=== PATIENT | male | born 1960 | race Caucasian/White ===

== ENCOUNTER 2017-03-23 03:21 | Inpatient (IN) | payer MEDICARE, MEDICAID ==
[~2017-03-23] VITALS: Ht 177.8 cm; Wt 92.1 kg
[~2017-03-23 03:21] MED LIST: ASPI-1061 PO; CLOZ100 PO; DIPH50 PO; DIVA500T52 PO; GEMF600T3 PO; HALO5 PO; HALOD50I IM; METF500T4 PO; TRIH5TAB2 PO
[2017-03-23 03:32] LABS: GLUCOSE,POINT OF CARE 134 MG/DL (70-110)
[2017-03-23] MEDS ORDERED: QUET200T29 PO (03:40)
[2017-03-23 04:32] LABS: BASOPHILS % (AUTO) 0.6 % (0.0-2.0); EOSINOPHILS % (AUTO) 0.1 % (1.0-6.0); HEMATOCRIT 40.2 % (41-53); HEMOGLOBIN 13.1 g/dL (13.5-17.5); LYMPHOCYTES # (AUTO) 2.5 K/uL (1.0-4.8); LYMPHOCYTES % (AUTO) 42.7 % (22.0-44.0); MEAN CORPUSCULAR HEMOGLOBIN 30.8 pg (26.0-34.0); MEAN CORPUSCULAR HGB CONC 32.6 G/dL (31.0-37.0); MEAN CORPUSCULAR VOLUME 95 fL (80-100); MONOCYTES # (AUTO) 0.7 K/uL (0.1-1.0); NEUTROPHILS # (AUTO) 2.7 K/uL (1.8-7.7); NEUTROPHILS % (AUTO) 45.6 % (40.0-70.0); PLATELET COUNT (AUTO) 311 K/uL (150-450); RED BLOOD CELL COUNT(AUTO) 4.25 MIL/uL (4.50-5.90); RED CELL DISTRIBUTION WIDTH 14.9 % (11.5-14.5)
[2017-03-23 04:42] LABS: ANION GAP 11 mmol/L (8-16); CALCIUM, TOTAL 8.8 mg/dL (8.8-10.5); CARBON DIOXIDE 26 mmol/L (22-29); CHLORIDE 104 mmol/L (98-107); CREATININE 0.71 mg/dL (0.60-1.30); GLOMERULAR FILTR. RATE CALC > 60 mL/min (>60); POTASSIUM 3.9 mmol/L (3.5-5.1); SODIUM SERUM 141 mmol/L (136-145); UREA NITROGEN, BLOOD 13 mg/dL (7-18)
[2017-03-23 04:48] LABS: ALANINE AMINOTRANSFERASE 22 U/L (12-78); ALBUMIN 2.9 g/dL (3.4-5.0); ASPARTATE AMINOTRANSFERASE 9 U/L (15-37); BILIRUBIN,TOTAL 0.1 mg/dL (0.1-1.0)
[2017-03-23] MEDS ORDERED: HALOPERIDOL 5 MG TABLET PO PRN (05:30)
[2017-03-23] MEDS ORDERED: LORazepam 2 MG TABLET PO PRN (05:30)
[2017-03-23] MEDS ORDERED: ZOLPIDEM TARTRATE 10 MG TABLET PO PRN (05:30)
[2017-03-23 06:43] LABS: APPEARANCE,URINE CLEAR (CLEAR); GLUCOSE, URINE (UA) NEGATIVE (NEGATIVE); KETONES,URINE TRACE mg/dL (NEGATIVE); LEUKOCYTE ESTERASE ,URINE NEGATIVE (NEGATIVE); OCCULT BLOOD,URINE NEGATIVE (NEGATIVE); PROTEIN,URINE POS 1+ (NEGATIVE)
[2017-03-23 06:44] LABS: ADD UA MICROSCOPIC YES
[2017-03-23 06:55] LABS: RBC,URINE None Seen /HPF (0-2); RENAL EPITHELIAL CELLS,URINE Few /LPF (None Seen); WBC,URINE 0-2 /HPF (0-5)
[2017-03-23 08:25] VITALS: BP 133/69
[2017-03-23] MEDS: NICOTINE 14 MG/24 HOUR PATCH TD SCH (09:00)
[2017-03-23] MEDS: DIVALPROEX SODIUM 500 MG ER TABLET PO SCH (16:13)
[2017-03-23 16:37] VITALS: BP 127/79
[2017-03-23] MEDS ORDERED: CloZAPine 100 MG TABLET PO SCH (21:00)
[2017-03-23] MEDS ORDERED: IBUPROFEN 400 MG TABLET PO PRN (23:00)
[2017-03-23] MEDS ORDERED: ALBUTEROL SULFATE HFA 90 MCG/PUFF 8 GM INHALER IH PRN (23:00)
[2017-03-23] MEDS ORDERED: ACETAMINOPHEN 325 MG TABLET PO PRN (23:00)
[2017-03-24] MEDS ORDERED: GEMFIBROZIL 600 MG TABLET PO SCH (07:00)
[2017-03-24] MEDS ORDERED: MetFORMIN HCL 500 MG TABLET PO SCH (07:30)
[2017-03-24 08:00] VITALS: BP 107/65
[2017-03-24 08:50] LABS: HEMOGLOBIN A1C 7.4 % (4.5-6.2)
[2017-03-24] MEDS ORDERED: ASPIRIN 81 MG EC TABLET PO SCH (09:00)
[2017-03-24] MEDS: NICOTINE 14 MG/24 HOUR PATCH TD SCH (09:00)
[2017-03-24 09:07] LABS: CHOL/HDL RATIO 9.2 (4.2-7.3); THYROID STIMULATING HORMONE 1.79 uIU/mL (0.36-3.74)
[2017-03-24] MEDS: DIVALPROEX SODIUM 500 MG ER TABLET PO SCH (09:22)
[2017-03-24] MEDS ORDERED: CLOZ100 PO (13:07)
== END 2017-03-24 15:30 | disposition home or self-care (01) | DRG 885 ==
LOC: EMS 03:23 → 3EI 06:08
PROVIDERS: ADMIT Psychiatry & Neurology Psychiatry; ATTEND Psychiatry & Neurology Psychiatry
DX: F25.9 Schizoaffective disorder, unspecified (principal); R45.851 Suicidal ideations; E46 Unspecified protein-calorie malnutrition; F17.210 Nicotine dependence, cigarettes, uncomplicated; I10 Essential (primary) hypertension; J44.9 Chronic obstructive pulmonary disease, unspecified; E11.9 Type 2 diabetes mellitus without complications; E78.5 Hyperlipidemia, unspecified; D64.9 Anemia, unspecified; G40.909 Epilepsy, unspecified, not intractable, without status epilepticus; F31.9 Bipolar disorder, unspecified; Z53.29 Procedure and treatment not carried out because of patient's decision for other reasons; Z88.8 Allergy status to other drugs, medicaments and biological substances; Z68.29 Body mass index [BMI] 29.0-29.9, adult
CPT/HCPCS: 82962; 83036; 84443; 99285; G0480

== ENCOUNTER 2017-04-17 19:34 | Inpatient (IN) | payer MEDICARE, MEDICAID ==
[~2017-04-17] VITALS: Ht 177.8 cm; Wt 93.8 kg
[~2017-04-17 19:34] MED LIST changes: -DIPH50 PO; -HALO5 PO; -HALOD50I IM; -TRIH5TAB2 PO
[2017-04-17 20:17] LABS: GLUCOSE,POINT OF CARE 172 MG/DL (70-110)
[2017-04-17 20:26] LABS: BASOPHILS % (AUTO) 0.3 % (0.0-2.0); EOSINOPHILS % (AUTO) 0.1 % (1.0-6.0); HEMATOCRIT 41.2 % (41-53); HEMOGLOBIN 13.2 g/dL (13.5-17.5); LYMPHOCYTES # (AUTO) 2.4 K/uL (1.0-4.8); LYMPHOCYTES % (AUTO) 33.3 % (22.0-44.0); MEAN CORPUSCULAR HEMOGLOBIN 30.6 pg (26.0-34.0); MEAN CORPUSCULAR HGB CONC 32.1 G/dL (31.0-37.0); MEAN CORPUSCULAR VOLUME 95 fL (80-100); MONOCYTES # (AUTO) 0.8 K/uL (0.1-1.0); MONOCYTES % (AUTO) 10.5 % (2.0-9.0); NEUTROPHILS % (AUTO) 55.8 % (40.0-70.0); PLATELET COUNT (AUTO) 342 K/uL (150-450); RED BLOOD CELL COUNT(AUTO) 4.33 MIL/uL (4.50-5.90); RED CELL DISTRIBUTION WIDTH 14.9 % (11.5-14.5); WHITE BLOOD COUNT (AUTO) 7.3 K/uL (4.5-11.0)
[2017-04-17 20:39] LABS: ANION GAP 11 mmol/L (8-16); CARBON DIOXIDE 26 mmol/L (22-29); CHLORIDE 105 mmol/L (98-107); CREATININE 1.03 mg/dL (0.60-1.30); GLOMERULAR FILTR. RATE CALC > 60 mL/min (>60); POTASSIUM 4.4 mmol/L (3.5-5.1); SODIUM SERUM 142 mmol/L (136-145); UREA NITROGEN, BLOOD 17 mg/dL (7-18)
[2017-04-17 20:43] LABS: ALANINE AMINOTRANSFERASE 27 U/L (12-78); ALBUMIN 3.4 g/dL (3.4-5.0); ASPARTATE AMINOTRANSFERASE 9 U/L (15-37); BILIRUBIN,TOTAL 0.2 mg/dL (0.1-1.0); TOTAL PROTEIN, SERUM 7.7 g/dL (6.4-8.2); VALPROIC ACID 85 mcg/mL (50-100)
[2017-04-17] MEDS ORDERED: LORazepam 2 MG/ML VIAL IM ONE (21:30)
[2017-04-17] MEDS ORDERED: RisperiDONE 1 MG TABLET PO ONE (21:30)
[2017-04-17] MEDS ORDERED: LORazepam 2 MG TABLET PO PRN (21:45)
[2017-04-17] MEDS ORDERED: HALOPERIDOL 5 MG TABLET PO PRN (21:45)
[2017-04-17] MEDS ORDERED: ZOLPIDEM TARTRATE 10 MG TABLET PO PRN (21:45)
[2017-04-18 01:00] VITALS: BP 129/75
[2017-04-18] MEDS ORDERED: PNEUMOCOCCAL VACCINE POLYVALENT 0.5 ML VIAL [PPSV23] IM ONE (01:30)
[2017-04-18 06:02] LABS: GLUCOSE,POINT OF CARE 162 MG/DL (70-110)
[2017-04-18 08:02] LABS: APPEARANCE,URINE CLEAR (CLEAR); GLUCOSE, URINE (UA) NEGATIVE (NEGATIVE); KETONES,URINE NEGATIVE (NEGATIVE); LEUKOCYTE ESTERASE ,URINE NEGATIVE (NEGATIVE); OCCULT BLOOD,URINE NEGATIVE (NEGATIVE); PROTEIN,URINE TRACE (NEGATIVE)
[2017-04-18 08:10] LABS: ADD UA MICROSCOPIC NO
[2017-04-18 08:32] LABS: CHOL/HDL RATIO 8.5 (4.2-7.3)
[2017-04-18 09:18] VITALS: BP 145/73
[2017-04-18] MEDS: ASPIRIN 81 MG EC TABLET PO SCH (10:06)
[2017-04-18] MEDS: GEMFIBROZIL 600 MG TABLET PO SCH (16:32)
[2017-04-18] MEDS: DIVALPROEX SODIUM 500 MG ER TABLET PO SCH (17:06)
[2017-04-18] MEDS: MetFORMIN HCL 500 MG TABLET PO SCH (17:06)
[2017-04-18 17:07] LABS: GLUCOSE,POINT OF CARE 183 MG/DL (70-110)
[2017-04-18 17:51] VITALS: BP 133/82
[2017-04-18] MEDS ORDERED: ALBUTEROL SULFATE HFA 90 MCG/PUFF 8 GM INHALER IH PRN (19:00)
[2017-04-18] MEDS ORDERED: ACETAMINOPHEN 325 MG TABLET PO PRN (19:00)
[2017-04-18] MEDS ORDERED: IBUPROFEN 400 MG TABLET PO PRN (19:00)
[2017-04-18] MEDS ORDERED: CloZAPine 100 MG TABLET PO SCH (21:00)
[2017-04-18] MEDS ORDERED: SIMVASTATIN 10 MG TABLET PO SCH (21:00)
[2017-04-19 00:09] VITALS: BP 146/78
[2017-04-19] MEDS: GEMFIBROZIL 600 MG TABLET PO SCH ×2 (06:06→16:35)
[2017-04-19] MEDS: MetFORMIN HCL 500 MG TABLET PO SCH ×2 (06:06→16:35)
[2017-04-19 06:17] LABS: GLUCOSE,POINT OF CARE 138 MG/DL (70-110)
[2017-04-19 08:31] VITALS: BP 138/76
[2017-04-19] MEDS: DIVALPROEX SODIUM 500 MG ER TABLET PO SCH ×2 (08:38→16:35)
[2017-04-19] MEDS: ASPIRIN 81 MG EC TABLET PO SCH (08:38)
[2017-04-19 11:22] LABS: GLUCOSE,POINT OF CARE 239 MG/DL (70-110)
[2017-04-19 16:00] VITALS: BP 147/84
[2017-04-19] MEDS ORDERED: SIMV-259 PO (16:20)
[2017-04-19 16:42] LABS: GLUCOSE,POINT OF CARE 187 MG/DL (70-110)
== END 2017-04-19 17:20 | disposition home or self-care (01) | DRG 885 ==
LOC: EMS 19:37 → B2S 22:30
PROVIDERS: ADMIT Psychiatry & Neurology Psychiatry; ATTEND Psychiatry & Neurology Psychiatry
DX: F25.9 Schizoaffective disorder, unspecified (principal); G40.909 Epilepsy, unspecified, not intractable, without status epilepticus; I10 Essential (primary) hypertension; I25.10 Atherosclerotic heart disease of native coronary artery without angina pectoris; J44.9 Chronic obstructive pulmonary disease, unspecified; F19.10 Other psychoactive substance abuse, uncomplicated; F32.9 Major depressive disorder, single episode, unspecified; F31.9 Bipolar disorder, unspecified; M19.90 Unspecified osteoarthritis, unspecified site; F17.210 Nicotine dependence, cigarettes, uncomplicated; E11.9 Type 2 diabetes mellitus without complications; Z71.51 Drug abuse counseling and surveillance of drug abuser; Z79.84 Long term (current) use of oral hypoglycemic drugs; Z79.82 Long term (current) use of aspirin; Z79.899 Other long term (current) drug therapy; Z88.8 Allergy status to other drugs, medicaments and biological substances; Z28.21 Immunization not carried out because of patient refusal; Z98.890 Other specified postprocedural states; Z71.6 Tobacco abuse counseling
CPT/HCPCS: 82962; 87081; 90471; 96372; 99285; G0480; J2060

== ENCOUNTER 2017-05-10 23:38 | Emergency (ER) | payer MEDICARE, OTHER ==
[~2017-05-10] VITALS: Ht 172.7 cm; Wt 93.0 kg
[~2017-05-10 23:38] MED LIST changes: +SIMV-259 PO
[2017-05-11 02:16] LABS: BASOPHILS # (AUTO) 0.07 K/uL (0.00-0.20); BASOPHILS % (AUTO) 0.9 % (0.0-2.0); EOSINOPHILS # (AUTO) 0.01 K/uL (0.00-0.70); EOSINOPHILS % (AUTO) 0.18 % (1.0-6.0); HEMATOCRIT 37.6 % (41-53); HEMOGLOBIN 12.1 g/dL (13.5-17.5); LYMPHOCYTES # (AUTO) 2.8 K/uL (1.0-4.8); LYMPHOCYTES % (AUTO) 35.9 % (22.0-44.0); MEAN CORPUSCULAR HEMOGLOBIN 30.9 pg (26.0-34.0); MEAN CORPUSCULAR HGB CONC 32.3 G/dL (31.0-37.0); MEAN CORPUSCULAR VOLUME 96 fL (80-100); MONOCYTES # (AUTO) 0.6 K/uL (0.1-1.0); NEUTROPHILS # (AUTO) 4.4 K/uL (1.8-7.7); PLATELET COUNT (AUTO) 573 K/uL (150-450); RED BLOOD CELL COUNT(AUTO) 3.93 MIL/uL (4.50-5.90); RED CELL DISTRIBUTION WIDTH 15.1 % (11.5-14.5); WHITE BLOOD COUNT (AUTO) 7.9 K/uL (4.5-11.0)
[2017-05-11 02:25] LABS: ANION GAP 13 mmol/L (8-16); CALCIUM, TOTAL 9.4 mg/dL (8.8-10.5); CARBON DIOXIDE 26 mmol/L (22-29); CHLORIDE 101 mmol/L (98-107); CREATININE 1.03 mg/dL (0.60-1.30); GLOMERULAR FILTR. RATE CALC > 60 mL/min (>60); POTASSIUM 4.5 mmol/L (3.5-5.1); SODIUM SERUM 140 mmol/L (136-145); UREA NITROGEN, BLOOD 22 mg/dL (7-18)
[2017-05-11 02:31] LABS: ALANINE AMINOTRANSFERASE 30 U/L (12-78); ALBUMIN 2.9 g/dL (3.4-5.0); ASPARTATE AMINOTRANSFERASE 13 U/L (15-37); BILIRUBIN,TOTAL 0.2 mg/dL (0.1-1.0); TOTAL PROTEIN, SERUM 7.8 g/dL (6.4-8.2)
[2017-05-11 05:14] VITALS: BP 131/82
== END 2017-05-11 05:16 | disposition home or self-care (01) ==
LOC: EMS 23:40
DX: F41.9 Anxiety disorder, unspecified (principal); F31.9 Bipolar disorder, unspecified; E11.65 Type 2 diabetes mellitus with hyperglycemia; R07.89 Other chest pain; E44.0 Moderate protein-calorie malnutrition; E78.00 Pure hypercholesterolemia, unspecified; I10 Essential (primary) hypertension; F17.210 Nicotine dependence, cigarettes, uncomplicated; F20.9 Schizophrenia, unspecified; Z79.82 Long term (current) use of aspirin; Z88.8 Allergy status to other drugs, medicaments and biological substances
CPT/HCPCS: 36415; 80053; 80164; 84484; 85025; 93005; 99285; 99406; G0480

== ENCOUNTER 2017-10-08 14:10 | Emergency (ER) | payer MEDICARE, OTHER ==
[~2017-10-08] VITALS: Ht 180.3 cm; Wt 90.4 kg
[~2017-10-08 14:10] MED LIST changes: -ASPI-1061 PO; +ASPI81TA33 PO; +LACT30L PO; -SIMV-259 PO
[2017-10-08 14:18] VITALS: BP 135/99
[2017-10-08 14:23] LABS: GLUCOSE,POINT OF CARE 152 MG/DL (70-110)
== END 2017-10-08 15:31 | disposition home or self-care (01) ==
LOC: EMS 14:11
DX: F32.9 Major depressive disorder, single episode, unspecified (principal); F20.9 Schizophrenia, unspecified; F31.9 Bipolar disorder, unspecified; E11.9 Type 2 diabetes mellitus without complications; E78.00 Pure hypercholesterolemia, unspecified; I10 Essential (primary) hypertension; F17.210 Nicotine dependence, cigarettes, uncomplicated; Z88.8 Allergy status to other drugs, medicaments and biological substances
CPT/HCPCS: 82962; 99284

== ENCOUNTER 2018-06-21 16:44 | Inpatient (IN) | payer MEDICARE, MEDICAID ==
[~2018-06-21] VITALS: Ht 177.8 cm; Wt 92.7 kg
[~2018-06-21 16:44] MED LIST changes: -ASPI81TA33 PO; +ASPI81TA87 PO; -METF500T4 PO; +METF500T6 PO
[2018-06-21] MEDS ORDERED: QUET25TA PO (17:23)
[2018-06-21] MEDS ORDERED: HALO1 PO (17:23)
[2018-06-21] MEDS ORDERED: TRIH2TAB3 PO (17:23)
[2018-06-21 17:59] LABS: GLUCOSE,POINT OF CARE 148 MG/DL (70-110)
[2018-06-21 18:29] LABS: BASOPHILS % (AUTO) 0.9 % (0.0-2.0); EOSINOPHILS % (AUTO) 0.2 % (1.0-6.0); HEMATOCRIT 40.4 % (41-53); HEMOGLOBIN 13.9 g/dL (13.5-17.5); LYMPHOCYTES # (AUTO) 2.3 K/uL (1.0-4.8); LYMPHOCYTES % (AUTO) 37.3 % (22.0-44.0); MEAN CORPUSCULAR HEMOGLOBIN 32.3 pg (26.0-34.0); MEAN CORPUSCULAR HGB CONC 34.3 G/dL (31.0-37.0); MEAN CORPUSCULAR VOLUME 94 fL (80-100); MONOCYTES # (AUTO) 0.5 K/uL (0.1-1.0); MONOCYTES % (AUTO) 7.8 % (2.0-9.0); NEUTROPHILS # (AUTO) 3.4 K/uL (1.8-7.7); NEUTROPHILS % (AUTO) 53.8 % (40.0-70.0); PLATELET COUNT (AUTO) 278 K/uL (150-450); RED BLOOD CELL COUNT(AUTO) 4.29 MIL/uL (4.50-5.90); RED CELL DISTRIBUTION WIDTH 14.9 % (11.5-14.5)
[2018-06-21 18:38] LABS: ANION GAP 8 mmol/L (8-16); CALCIUM, TOTAL 9.1 mg/dL (8.8-10.5); CARBON DIOXIDE 27 mmol/L (22-29); CHLORIDE 104 mmol/L (98-107); CREATININE 0.83 mg/dL (0.60-1.30); GLOMERULAR FILTR. RATE CALC > 60 mL/min (>60); GLUCOSE,RANDOM 135 mg/dL (70-110); POTASSIUM 4.4 mmol/L (3.5-5.1); SODIUM SERUM 139 mmol/L (136-145); UREA NITROGEN, BLOOD 12 mg/dL (7-18)
[2018-06-21 18:45] LABS: ALANINE AMINOTRANSFERASE 44 U/L (12-78); ALBUMIN 3.5 g/dL (3.4-5.0); ALKALINE PHOSPHATASE 70 U/L (46-116); ASPARTATE AMINOTRANSFERASE 17 U/L (15-37); BILIRUBIN,TOTAL 0.3 mg/dL (0.1-1.0); TOTAL PROTEIN, SERUM 7.8 g/dL (6.4-8.2); VALPROIC ACID 93 mcg/mL (50-100)
[2018-06-21 18:51] LABS: AMPHET/METH SCREEN,URINE NEGATIVE (NEGATIVE); BARBITURATE SCREEN, URINE NEGATIVE (NEGATIVE); BENZODIAZEPINES SCREEN,URINE NEGATIVE (NEGATIVE); CANNABINOID SCREEN,URINE NEGATIVE (NEGATIVE); COCAINE SCREEN,URINE NEGATIVE (NEGATIVE); METHADONE SCREEN, URINE NEGATIVE (NEGATIVE); OPIATE SCREEN,URINE NEGATIVE (NEGATIVE)
[2018-06-21 18:52] LABS: PHENCYCLIDINE SCREEN,URINE NEGATIVE (NEGATIVE)
[2018-06-21 20:03] LABS: GLUCOSE,POINT OF CARE 193 MG/DL (70-110)
[2018-06-21] MEDS ORDERED: HALOPERIDOL 5 MG TABLET PO PRN (20:15)
[2018-06-21] MEDS ORDERED: LORazepam 2 MG TABLET PO PRN (20:15)
[2018-06-21] MEDS ORDERED: HALOPERIDOL LACTATE 5 MG/ML VIAL IM ONE (20:30)
[2018-06-21] MEDS ORDERED: LORazepam 2 MG/ML VIAL IM ONE (20:30)
[2018-06-21] MEDS ORDERED: DiphenhydrAMINE HCL 50 MG/ML VIAL IM ONE (20:30)
[2018-06-21] MEDS: DIVALPROEX SODIUM 500 MG ER TABLET PO SCH (21:10)
[2018-06-22 00:08] VITALS: BP_SYST 140; BP_SYST 145; BP_DIAS 79
[2018-06-22] MEDS ORDERED: PNEUMOCOCCAL VACCINE POLYVALENT 0.5 ML VIAL [PPSV23] IM ONE (01:15)
[2018-06-22] MEDS ORDERED: LOPERAMIDE HCL 2 MG CAPSULE PO PRN (05:45)
[2018-06-22] MEDS ORDERED: ONDANSETRON HCL 4 MG TABLET PO PRN (05:45)
[2018-06-22] MEDS ORDERED: MAG HYDROX/AL HYDROX/SIMETH ES 30 ML SUSPENSION UDCUP PO PRN (05:45)
[2018-06-22] MEDS ORDERED: ALBUTEROL SULFATE HFA 90 MCG/PUFF 8 GM INHALER IH PRN (05:45)
[2018-06-22] MEDS ORDERED: DOCUSATE SODIUM 100 MG CAPSULE PO PRN (05:45)
[2018-06-22] MEDS ORDERED: ACETAMINOPHEN 325 MG TABLET PO PRN (05:45)
[2018-06-22] MEDS ORDERED: MAGNESIUM HYDROXIDE SUSPENSION 30 ML UDCUP PO PRN (05:45)
[2018-06-22] MEDS ORDERED: IBUPROFEN 400 MG TABLET PO PRN (05:45)
[2018-06-22] MEDS ORDERED: CloNIDine HCL 0.1 MG TABLET PO PRN (05:45)
[2018-06-22] MEDS ORDERED: PETROLATUM,WHITE 71 GM JELLY TP PRN (05:45)
[2018-06-22 06:35] LABS: GLUCOMETER DEV NAME(LOC) BV2N3; GLUCOSE,POINT OF CARE 168 MG/DL (70-110)
[2018-06-22] MEDS: MetFORMIN HCL 500 MG TABLET PO SCH ×2 (07:29→16:37)
[2018-06-22 08:55] VITALS: BP 131/86
[2018-06-22] MEDS: ASPIRIN 81 MG EC TABLET PO SCH (08:59)
[2018-06-22] MEDS: DIVALPROEX SODIUM 500 MG ER TABLET PO SCH ×2 (08:59→16:38)
[2018-06-22 09:22] LABS: HEMOGLOBIN A1C 8.6 % (4.5-6.2)
[2018-06-22 09:36] LABS: CHOLESTEROL 275 mg/dL (131-200); FREE T4 (FREE THYROXINE) 0.73 ng/dL (0.76-1.46); HDL CHOLESTEROL 25 mg/dL (40-60); THYROID STIMULATING HORMONE 6.84 uIU/mL (0.36-3.74); TRIGLYCERIDES 1051 mg/dL (15-150); VALPROIC ACID 78 mcg/mL (50-100)
[2018-06-22] MEDS: TRIHEXYPHENIDYL HCL 2 MG TABLET PO SCH ×2 (13:11→16:39)
[2018-06-22 16:20] VITALS: BP 116/74
[2018-06-22] MEDS ORDERED: DIVALPROEX SODIUM 500 MG ER TABLET PO SCH (17:00)
[2018-06-22 18:43] LABS: GLUCOMETER DEV NAME(LOC) BV2N3; GLUCOSE,POINT OF CARE 199 MG/DL (70-110)
[2018-06-22] MEDS: ZOLPIDEM TARTRATE 10 MG TABLET PO PRN (20:29)
[2018-06-22] MEDS: SIMVASTATIN 20 MG TABLET PO SCH (20:30)
[2018-06-22] MEDS: CloZAPine 100 MG TABLET PO SCH (20:30)
[2018-06-22 20:54] LABS: GLUCOMETER DEV NAME(LOC) BV2N3; GLUCOSE,POINT OF CARE 178 MG/DL (70-110)
[2018-06-23] MEDS: MetFORMIN HCL 500 MG TABLET PO SCH ×2 (06:10→16:37)
[2018-06-23] MEDS: LEVOTHYROXINE SODIUM 25 MCG TABLET PO SCH (06:10)
[2018-06-23 06:29] LABS: GLUCOMETER DEV NAME(LOC) BV2N3; GLUCOSE,POINT OF CARE 130 MG/DL (70-110)
[2018-06-23 06:53] VITALS: BP 103/62
[2018-06-23 08:10] VITALS: BP 141/85
[2018-06-23] MEDS: AmLODIPine BESYLATE 2.5 MG TABLET PO SCH (10:04)
[2018-06-23] MEDS: DIVALPROEX SODIUM 500 MG ER TABLET PO SCH ×2 (10:04→16:37)
[2018-06-23] MEDS: ASPIRIN 81 MG EC TABLET PO SCH (10:04)
[2018-06-23] MEDS: TRIHEXYPHENIDYL HCL 2 MG TABLET PO SCH ×3 (10:06→16:37)
[2018-06-23 16:18] LABS: GLUCOMETER DEV NAME(LOC) BV2N3; GLUCOSE,POINT OF CARE 203 MG/DL (70-110)
[2018-06-23 18:20] VITALS: BP 139/78
[2018-06-23] MEDS: CloZAPine 100 MG TABLET PO SCH (20:31)
[2018-06-23] MEDS: SIMVASTATIN 20 MG TABLET PO SCH (20:31)
[2018-06-23] MEDS: ZOLPIDEM TARTRATE 10 MG TABLET PO PRN (21:11)
[2018-06-24 06:30] LABS: GLUCOMETER DEV NAME(LOC) BV2N3; GLUCOSE,POINT OF CARE 139 MG/DL (70-110)
[2018-06-24] MEDS: MetFORMIN HCL 500 MG TABLET PO SCH ×2 (06:34→16:09)
[2018-06-24] MEDS: LEVOTHYROXINE SODIUM 25 MCG TABLET PO SCH (06:34)
[2018-06-24 07:10] VITALS: BP 138/74
[2018-06-24 08:00] VITALS: BP 119/64
[2018-06-24] MEDS: ASPIRIN 81 MG EC TABLET PO SCH (09:02)
[2018-06-24] MEDS: TRIHEXYPHENIDYL HCL 2 MG TABLET PO SCH ×3 (09:02→16:09)
[2018-06-24] MEDS: DIVALPROEX SODIUM 500 MG ER TABLET PO SCH ×2 (09:02→16:10)
[2018-06-24] MEDS: AmLODIPine BESYLATE 2.5 MG TABLET PO SCH (09:02)
[2018-06-24 16:19] LABS: GLUCOMETER DEV NAME(LOC) BV2N3; GLUCOSE,POINT OF CARE 232 MG/DL (70-110)
[2018-06-24] MEDS ORDERED: LEVO25TA9 PO (16:24)
[2018-06-24] MEDS ORDERED: TRIH5TAB2 PO (16:24)
[2018-06-24] MEDS ORDERED: AMLO2.5T PO (16:24)
[2018-06-24] MEDS ORDERED: SIMV-260 PO (16:24)
== END 2018-06-24 17:30 | disposition home or self-care (01) | DRG 885 ==
LOC: EMS 16:45 → B2X 20:25
PROVIDERS: ADMIT Psychiatry & Neurology Psychiatry; ATTEND Psychiatry & Neurology Psychiatry
DX: F25.0 Schizoaffective disorder, bipolar type (principal); R45.851 Suicidal ideations; F25.9 Schizoaffective disorder, unspecified; E11.9 Type 2 diabetes mellitus without complications; E78.00 Pure hypercholesterolemia, unspecified; E78.5 Hyperlipidemia, unspecified; F17.200 Nicotine dependence, unspecified, uncomplicated; F31.9 Bipolar disorder, unspecified; F41.9 Anxiety disorder, unspecified; I10 Essential (primary) hypertension; Z79.82 Long term (current) use of aspirin; Z79.84 Long term (current) use of oral hypoglycemic drugs; Z79.899 Other long term (current) drug therapy; Z71.6 Tobacco abuse counseling
CPT/HCPCS: 83036; 84439; 84443; 90471; 99285; 99406; G0480; J1200; J1630; J2060

== ENCOUNTER 2018-07-08 19:01 | Emergency (ER) | payer MEDICARE, OTHER ==
[~2018-07-08] VITALS: Ht 177.8 cm; Wt 93.2 kg
[~2018-07-08 19:01] MED LIST changes: +AMLO2.5T PO; -GEMF600T3 PO; -LACT30L PO; +LEVO25TA9 PO; +SIMV-260 PO; +TRIH5TAB2 PO
[2018-07-08 20:04] VITALS: BP 124/81
[2018-07-08 20:15] LABS: APPEARANCE,URINE CLEAR (CLEAR); GLUCOSE, URINE (UA) 250 mg/dL (NEGATIVE); KETONES,URINE 15 mg/dL (NEGATIVE); LEUKOCYTE ESTERASE ,URINE NEGATIVE (NEGATIVE); NITRATE,URINE NEGATIVE (NEGATIVE); OCCULT BLOOD,URINE NEGATIVE (NEGATIVE); PROTEIN,URINE SEE CONFIRM (NEGATIVE)
[2018-07-08 20:26] LABS: BILIRUBIN,URINE PRELIM. POSITIVE (NEGATIVE); SULFOSALICYLIC ACID,URINE 2+ (Negative)
[2018-07-08 20:27] LABS: BACTERIA,URINE None Seen /HPF (None Seen); RBC,URINE None Seen /HPF (0-2); SQUAMOUS EPITHELIAL CELL,UR Few /LPF (None Seen); WBC,URINE None Seen /HPF (0-5)
[2018-07-08 20:34] LABS: AMPHET/METH SCREEN,URINE NEGATIVE (NEGATIVE); BARBITURATE SCREEN, URINE NEGATIVE (NEGATIVE); BENZODIAZEPINES SCREEN,URINE NEGATIVE (NEGATIVE); CANNABINOID SCREEN,URINE NEGATIVE (NEGATIVE); COCAINE SCREEN,URINE NEGATIVE (NEGATIVE); METHADONE SCREEN, URINE NEGATIVE (NEGATIVE); OPIATE SCREEN,URINE NEGATIVE (NEGATIVE); PHENCYCLIDINE SCREEN,URINE NEGATIVE (NEGATIVE)
[2018-07-08 20:55] LABS: BASOPHILS % (AUTO) 0.7 % (0.0-2.0); EOSINOPHILS % (AUTO) 0.2 % (1.0-6.0); HEMATOCRIT 38.6 % (41-53); HEMOGLOBIN 13.4 g/dL (13.5-17.5); LYMPHOCYTES % (AUTO) 28.9 % (22.0-44.0); MEAN CORPUSCULAR HEMOGLOBIN 32.3 pg (26.0-34.0); MEAN CORPUSCULAR HGB CONC 34.6 G/dL (31.0-37.0); MEAN CORPUSCULAR VOLUME 93 fL (80-100); MONOCYTES # (AUTO) 0.7 K/uL (0.1-1.0); MONOCYTES % (AUTO) 10.1 % (2.0-9.0); NEUTROPHILS # (AUTO) 4.2 K/uL (1.8-7.7); NEUTROPHILS % (AUTO) 60.1 % (40.0-70.0); PLATELET COUNT (AUTO) 249 K/uL (150-450); RED BLOOD CELL COUNT(AUTO) 4.13 MIL/uL (4.50-5.90); RED CELL DISTRIBUTION WIDTH 14.6 % (11.5-14.5)
[2018-07-08 21:05] LABS: ANION GAP 8 mmol/L (8-16); CARBON DIOXIDE 27 mmol/L (22-29); CHLORIDE 102 mmol/L (98-107); CREATININE 0.83 mg/dL (0.60-1.30); GLOMERULAR FILTR. RATE CALC > 60 mL/min (>60); GLUCOSE,RANDOM 174 mg/dL (70-110); POTASSIUM 4.4 mmol/L (3.5-5.1); SODIUM SERUM 137 mmol/L (136-145); UREA NITROGEN, BLOOD 17 mg/dL (7-18)
[2018-07-08 21:21] LABS: ALANINE AMINOTRANSFERASE 40 U/L (12-78); ALBUMIN 3.3 g/dL (3.4-5.0); ALKALINE PHOSPHATASE 71 U/L (46-116); ASPARTATE AMINOTRANSFERASE 20 U/L (15-37); BILIRUBIN,TOTAL 0.3 mg/dL (0.1-1.0); THYROID STIMULATING HORMONE 2.28 uIU/mL (0.36-3.74); TOTAL PROTEIN, SERUM 7.5 g/dL (6.4-8.2); VALPROIC ACID 76 mcg/mL (50-100)
== END 2018-07-08 21:57 | disposition left against medical advice (07) ==
LOC: EMS 19:03
DX: F22 Delusional disorders (principal); F31.9 Bipolar disorder, unspecified; Z53.21 Procedure and treatment not carried out due to patient leaving prior to being seen by health care provider
CPT/HCPCS: 84443

== ENCOUNTER 2018-07-17 21:33 | Emergency (ER) | payer MEDICARE, OTHER ==
[~2018-07-17] VITALS: Ht 180.3 cm; Wt 91.4 kg
[2018-07-17 21:56] LABS: EOSINOPHILS % (AUTO) 0.1 % (1.0-6.0); HEMATOCRIT 39.3 % (41-53); HEMOGLOBIN 13.3 g/dL (13.5-17.5); LYMPHOCYTES # (AUTO) 2.3 K/uL (1.0-4.8); LYMPHOCYTES % (AUTO) 33.4 % (22.0-44.0); MEAN CORPUSCULAR HEMOGLOBIN 31.7 pg (26.0-34.0); MEAN CORPUSCULAR HGB CONC 33.8 G/dL (31.0-37.0); MEAN CORPUSCULAR VOLUME 94 fL (80-100); MONOCYTES # (AUTO) 0.7 K/uL (0.1-1.0); MONOCYTES % (AUTO) 9.7 % (2.0-9.0); NEUTROPHILS # (AUTO) 3.8 K/uL (1.8-7.7); NEUTROPHILS % (AUTO) 55.8 % (40.0-70.0); PLATELET COUNT (AUTO) 273 K/uL (150-450); RED BLOOD CELL COUNT(AUTO) 4.19 MIL/uL (4.50-5.90); RED CELL DISTRIBUTION WIDTH 14.9 % (11.5-14.5)
[2018-07-17 22:07] LABS: ANION GAP 12 mmol/L (8-16); CALCIUM, TOTAL 8.8 mg/dL (8.8-10.5); CARBON DIOXIDE 23 mmol/L (22-29); CHLORIDE 104 mmol/L (98-107); CREATININE 0.95 mg/dL (0.60-1.30); GLOMERULAR FILTR. RATE CALC > 60 mL/min (>60); GLUCOSE,RANDOM 198 mg/dL (70-110); POTASSIUM 4.2 mmol/L (3.5-5.1); SODIUM SERUM 139 mmol/L (136-145); UREA NITROGEN, BLOOD 15 mg/dL (7-18)
[2018-07-17 22:21] LABS: ALANINE AMINOTRANSFERASE 40 U/L (12-78); ALBUMIN 3.2 g/dL (3.4-5.0); ALKALINE PHOSPHATASE 72 U/L (46-116); ASPARTATE AMINOTRANSFERASE 15 U/L (15-37); BILIRUBIN,TOTAL 0.2 mg/dL (0.1-1.0); THYROID STIMULATING HORMONE 2.75 uIU/mL (0.36-3.74); TOTAL PROTEIN, SERUM 7.4 g/dL (6.4-8.2); VALPROIC ACID 76 mcg/mL (50-100)
[2018-07-17 23:42] LABS: APPEARANCE,URINE CLEAR (CLEAR); BILIRUBIN,URINE NEGATIVE (NEGATIVE); GLUCOSE, URINE (UA) NEGATIVE (NEGATIVE); KETONES,URINE TRACE mg/dL (NEGATIVE); LEUKOCYTE ESTERASE ,URINE NEGATIVE (NEGATIVE); NITRATE,URINE NEGATIVE (NEGATIVE); OCCULT BLOOD,URINE NEGATIVE (NEGATIVE); PROTEIN,URINE SEE CONFIRM (NEGATIVE)
[2018-07-17] MEDS ORDERED: LORazepam 1 MG TABLET PO ONE (23:45)
[2018-07-17 23:46] LABS: AMPHET/METH SCREEN,URINE NEGATIVE (NEGATIVE); BARBITURATE SCREEN, URINE NEGATIVE (NEGATIVE); BENZODIAZEPINES SCREEN,URINE NEGATIVE (NEGATIVE); CANNABINOID SCREEN,URINE NEGATIVE (NEGATIVE); COCAINE SCREEN,URINE NEGATIVE (NEGATIVE); METHADONE SCREEN, URINE NEGATIVE (NEGATIVE); OPIATE SCREEN,URINE NEGATIVE (NEGATIVE)
[2018-07-17 23:47] LABS: PHENCYCLIDINE SCREEN,URINE NEGATIVE (NEGATIVE); SULFOSALICYLIC ACID,URINE 1+ (Negative)
[2018-07-17 23:49] LABS: BACTERIA,URINE None Seen /HPF (None Seen); HYALINE CASTS, URINE 0-2 /LPF (None Seen); SQUAMOUS EPITHELIAL CELL,UR Rare /LPF (None Seen); WBC,URINE 0-2 /HPF (0-5)
[2018-07-18 01:55] VITALS: BP 131/79
== END 2018-07-18 02:04 | disposition home or self-care (01) ==
LOC: EMS 21:35
DX: F25.9 Schizoaffective disorder, unspecified (principal); R25.1 Tremor, unspecified; F32.9 Major depressive disorder, single episode, unspecified; F17.210 Nicotine dependence, cigarettes, uncomplicated; Z88.8 Allergy status to other drugs, medicaments and biological substances; Z79.84 Long term (current) use of oral hypoglycemic drugs; Z79.82 Long term (current) use of aspirin; Z79.899 Other long term (current) drug therapy
CPT/HCPCS: 36415; 80053; 80164; 80307; 81001; 82962; 84443; 85025; 99284; G0480

== ENCOUNTER 2019-02-14 01:10 | Inpatient (IN) | payer MEDICARE, MEDICAID ==
[~2019-02-14] VITALS: Ht 177.8 cm; Wt 90.7 kg
[~2019-02-14 01:10] MED LIST changes: -AMLO2.5T PO; +AMLO2.5T4 PO; +METF-960 PO; -METF500T6 PO
[2019-02-14 02:04] LABS: GLUCOSE,POINT OF CARE 210 MG/DL (70-110)
[2019-02-14] MEDS ORDERED: CloZAPine 100 MG TABLET PO ONE (02:30)
[2019-02-14 02:38] LABS: BASOPHILS % (AUTO) 0.9 % (0.0-2.0); EOSINOPHILS % (AUTO) 0.8 % (1.0-6.0); HEMATOCRIT 42.7 % (41-53); HEMOGLOBIN 14.3 g/dL (13.5-17.5); LYMPHOCYTES # (AUTO) 2.6 K/uL (1.0-4.8); MEAN CORPUSCULAR HEMOGLOBIN 30.8 pg (26.0-34.0); MEAN CORPUSCULAR HGB CONC 33.5 G/dL (31.0-37.0); MEAN CORPUSCULAR VOLUME 92 fL (80-100); MONOCYTES # (AUTO) 0.8 K/uL (0.1-1.0); MONOCYTES % (AUTO) 11.5 % (2.0-9.0); NEUTROPHILS # (AUTO) 3.3 K/uL (1.8-7.7); NEUTROPHILS % (AUTO) 48.8 % (40.0-70.0); PLATELET COUNT (AUTO) 213 K/uL (150-450); RED BLOOD CELL COUNT(AUTO) 4.64 MIL/uL (4.50-5.90); RED CELL DISTRIBUTION WIDTH 14.3 % (11.5-14.5)
[2019-02-14 02:46] LABS: ANION GAP 5 mmol/L (8-16); CALCIUM, TOTAL 9.3 mg/dL (8.8-10.5); CARBON DIOXIDE 28 mmol/L (22-29); CHLORIDE 103 mmol/L (98-107); CREATININE 0.79 mg/dL (0.60-1.30); GLOMERULAR FILTR. RATE CALC > 60 mL/min (>60); GLUCOSE,RANDOM 195 mg/dL (70-110); POTASSIUM 4.1 mmol/L (3.5-5.1); SODIUM SERUM 136 mmol/L (136-145); UREA NITROGEN, BLOOD 15 mg/dL (7-18)
[2019-02-14 02:52] LABS: ALANINE AMINOTRANSFERASE 29 U/L (12-78); ALBUMIN 3.2 g/dL (3.4-5.0); ALKALINE PHOSPHATASE 63 U/L (46-116); ASPARTATE AMINOTRANSFERASE 11 U/L (15-37); BILIRUBIN,TOTAL 0.2 mg/dL (0.1-1.0); TOTAL PROTEIN, SERUM 7.1 g/dL (6.4-8.2); VALPROIC ACID 77 mcg/mL (50-100)
[2019-02-14] MEDS ORDERED: LORazepam 2 MG TABLET PO PRN (03:30)
[2019-02-14] MEDS ORDERED: ZOLPIDEM TARTRATE 10 MG TABLET PO PRN (03:30)
[2019-02-14] MEDS ORDERED: HALOPERIDOL 5 MG TABLET PO PRN (03:30)
[2019-02-14 04:52] VITALS: BP 142/92
[2019-02-14 06:07] LABS: HEMOGLOBIN A1C 7.6 % (4.5-6.2)
[2019-02-14 06:17] LABS: FREE T4 (FREE THYROXINE) 0.89 ng/dL (0.76-1.46); THYROID STIMULATING HORMONE 5.19 uIU/mL (0.36-3.74)
[2019-02-14] MEDS ORDERED: PNEUMOCOCCAL VACCINE POLYVALENT 0.5 ML VIAL [PPSV23] IM ONE (07:15)
[2019-02-14] MEDS ORDERED: AmLODIPine BESYLATE 5 MG TABLET PO SCH (09:00)
[2019-02-14 10:00] VITALS: BP 119/62
[2019-02-14] MEDS: ASPIRIN 81 MG EC TABLET PO SCH (10:01)
[2019-02-14] MEDS: TRIHEXYPHENIDYL HCL 5 MG TABLET PO SCH ×3 (10:01→16:50)
[2019-02-14] MEDS ORDERED: GLUCAGON,HUMAN RECOMBINANT 1 MG VIAL IM PRN (11:30)
[2019-02-14] MEDS: INSULIN LISPRO 100 UNITS/ML SQ PRN ×2 (12:43→20:33)
[2019-02-14 13:43] LABS: GLUCOMETER DEV NAME(LOC) BV2S.; GLUCOSE,POINT OF CARE 214 MG/DL (70-110)
[2019-02-14 16:13] VITALS: BP 113/60
[2019-02-14 16:39] LABS: GLUCOMETER DEV NAME(LOC) BV2S.; GLUCOSE,POINT OF CARE 132 MG/DL (70-110)
[2019-02-14] MEDS: DIVALPROEX SODIUM 500 MG ER TABLET PO SCH (16:50)
[2019-02-14] MEDS: CloZAPine 100 MG TABLET PO SCH (16:50)
[2019-02-14] MEDS: MetFORMIN HCL 500 MG TABLET PO SCH (16:50)
[2019-02-14 20:23] LABS: GLUCOMETER DEV NAME(LOC) BV2S.; GLUCOSE,POINT OF CARE 215 MG/DL (70-110)
[2019-02-14] MEDS: SIMVASTATIN 20 MG TABLET PO SCH (20:33)
[2019-02-14] MEDS ORDERED: SIMVASTATIN 20 MG TABLET PO SCH (21:00)
[2019-02-15 00:43] VITALS: BP 125/68
[2019-02-15 06:29] LABS: GLUCOMETER DEV NAME(LOC) BV2S.; GLUCOSE,POINT OF CARE 130 MG/DL (70-110)
[2019-02-15] MEDS: LEVOTHYROXINE SODIUM 25 MCG TABLET PO SCH (06:50)
[2019-02-15] MEDS: MetFORMIN HCL 500 MG TABLET PO SCH ×2 (07:07→16:42)
[2019-02-15 08:45] VITALS: BP 113/65
[2019-02-15] MEDS: TRIHEXYPHENIDYL HCL 5 MG TABLET PO SCH ×3 (08:47→16:42)
[2019-02-15] MEDS: AmLODIPine BESYLATE 2.5 MG TABLET PO SCH (08:47)
[2019-02-15] MEDS: ASPIRIN 81 MG EC TABLET PO SCH (08:48)
[2019-02-15] MEDS: CloZAPine 100 MG TABLET PO SCH ×2 (08:48→16:42)
[2019-02-15] MEDS: DIVALPROEX SODIUM 500 MG ER TABLET PO SCH ×2 (08:48→16:42)
[2019-02-15] MEDS: INSULIN LISPRO 100 UNITS/ML SQ PRN ×3 (10:58→20:51)
[2019-02-15 11:02] LABS: GLUCOMETER DEV NAME(LOC) BV2S.; GLUCOSE,POINT OF CARE 153 MG/DL (70-110)
[2019-02-15 16:30] VITALS: BP 128/84
[2019-02-15 16:33] LABS: GLUCOMETER DEV NAME(LOC) BV2S.; GLUCOSE,POINT OF CARE 211 MG/DL (70-110)
[2019-02-15 20:18] LABS: GLUCOMETER DEV NAME(LOC) BV2S.; GLUCOSE,POINT OF CARE 199 MG/DL (70-110)
[2019-02-15] MEDS: SIMVASTATIN 20 MG TABLET PO SCH (20:40)
[2019-02-16 04:56] VITALS: BP 122/78
[2019-02-16 06:24] LABS: GLUCOMETER DEV NAME(LOC) BV2S.; GLUCOSE,POINT OF CARE 155 MG/DL (70-110)
[2019-02-16] MEDS: LEVOTHYROXINE SODIUM 25 MCG TABLET PO SCH (06:32)
[2019-02-16] MEDS: MetFORMIN HCL 500 MG TABLET PO SCH (06:32)
[2019-02-16] MEDS: INSULIN LISPRO 100 UNITS/ML SQ PRN (06:35)
[2019-02-16] MEDS: CloZAPine 100 MG TABLET PO SCH (08:03)
[2019-02-16] MEDS: ASPIRIN 81 MG EC TABLET PO SCH (08:03)
[2019-02-16] MEDS: TRIHEXYPHENIDYL HCL 5 MG TABLET PO SCH (08:03)
[2019-02-16] MEDS: DIVALPROEX SODIUM 500 MG ER TABLET PO SCH (08:04)
[2019-02-16] MEDS: AmLODIPine BESYLATE 2.5 MG TABLET PO SCH (08:04)
[2019-02-16 08:39] VITALS: BP 140/90
[2019-02-16 09:14] LABS: CHOL/HDL RATIO 7.7 (4.2-7.3); CHOLESTEROL 254 mg/dL (131-200); HDL CHOLESTEROL 33 mg/dL (40-60); TRIGLYCERIDES 575 mg/dL (15-150)
[2019-02-16] MEDS ORDERED: ASPI-1182 PO (09:44)
[2019-02-16 16:14] LABS: GLUCOMETER DEV NAME(LOC) BV2S.; GLUCOSE,POINT OF CARE 234 MG/DL (70-110)
== END 2019-02-16 11:40 | disposition home or self-care (01) | DRG 885 ==
LOC: EMS 01:12 → B2X 03:00
PROVIDERS: ADMIT Psychiatry & Neurology Psychiatry; ATTEND Psychiatry & Neurology Psychiatry
DX: F25.9 Schizoaffective disorder, unspecified (principal); E11.65 Type 2 diabetes mellitus with hyperglycemia; R45.851 Suicidal ideations; Z28.21 Immunization not carried out because of patient refusal; Z88.8 Allergy status to other drugs, medicaments and biological substances; F17.210 Nicotine dependence, cigarettes, uncomplicated; I10 Essential (primary) hypertension; E03.9 Hypothyroidism, unspecified; E78.5 Hyperlipidemia, unspecified; Z79.82 Long term (current) use of aspirin; Z79.899 Other long term (current) drug therapy
CPT/HCPCS: 83036; 84439; 84443; G0480

== ENCOUNTER 2020-01-24 22:29 | Inpatient (IN) | payer MEDICARE, OTHER ==
[~2020-01-24] VITALS: Ht 180.3 cm; Wt 91.4 kg
[~2020-01-24 22:29] MED LIST changes: -AMLO2.5T4 PO; +ASPI-1111 PO; -ASPI81TA87 PO; -LEVO25TA9 PO; +MAGOX PO; +OMEG-135 PO; +PHEN100C23 PO; -SIMV-260 PO; +SIMV-261 PO; -TRIH5TAB2 PO
[2020-01-24 22:47] LABS: GLUCOSE,POINT OF CARE 172 MG/DL (70-110)
[2020-01-24] MEDS ORDERED: LevETIRAcetam 1,000 MG in DEXTROSE 5%-WATER 100 ML IV ONE (23:15)
[2020-01-24 23:16] LABS: BASOPHILS % (AUTO) 0.9 % (0.0-2.0); EOSINOPHILS % (AUTO) 0.8 % (1.0-6.0); HEMATOCRIT 40.9 % (41-53); HEMOGLOBIN 13.7 g/dL (13.5-17.5); LYMPHOCYTES # (AUTO) 2.1 K/uL (1.0-4.8); LYMPHOCYTES % (AUTO) 37.3 % (22.0-44.0); MEAN CORPUSCULAR HEMOGLOBIN 31.5 pg (26.0-34.0); MEAN CORPUSCULAR HGB CONC 33.5 G/dL (31.0-37.0); MEAN CORPUSCULAR VOLUME 94 fL (80-100); MONOCYTES # (AUTO) 0.7 K/uL (0.1-1.0); MONOCYTES % (AUTO) 11.7 % (2.0-9.0); NEUTROPHILS # (AUTO) 2.8 K/uL (1.8-7.7); NEUTROPHILS % (AUTO) 49.3 % (40.0-70.0); PLATELET COUNT (AUTO) 210 K/uL (150-450); RED BLOOD CELL COUNT(AUTO) 4.35 MIL/uL (4.50-5.90); RED CELL DISTRIBUTION WIDTH 14.8 % (11.5-14.5)
[2020-01-24 23:25] LABS: ANION GAP 8 mmol/L (8-16); CALCIUM, TOTAL 8.8 mg/dL (8.8-10.5); CARBON DIOXIDE 28 mmol/L (22-29); CHLORIDE 104 mmol/L (98-107); CREATININE 0.97 mg/dL (0.60-1.30); GLOMERULAR FILTR. RATE CALC > 60 mL/min (>60); GLUCOSE,RANDOM 194 mg/dL (70-110); POTASSIUM 4.1 mmol/L (3.5-5.1); SODIUM SERUM 140 mmol/L (136-145); UREA NITROGEN, BLOOD 16 mg/dL (7-18)
[2020-01-24 23:31] LABS: ALANINE AMINOTRANSFERASE 32 U/L (12-78); ALKALINE PHOSPHATASE 63 U/L (46-116); ASPARTATE AMINOTRANSFERASE 12 U/L (15-37); BILIRUBIN,TOTAL 0.2 mg/dL (0.1-1.0); VALPROIC ACID 89 mcg/mL (50-100)
[2020-01-24 23:33] LABS: AMMONIA 30 umol/L (11-32); TROPONIN I < 0.02 ng/mL (0.00-0.05)
[2020-01-25 00:16] LABS: APPEARANCE,URINE CLEAR (CLEAR); BILIRUBIN,URINE NEGATIVE (NEGATIVE); GLUCOSE, URINE (UA) 500 mg/dL (NEGATIVE); KETONES,URINE TRACE mg/dL (NEGATIVE); LEUKOCYTE ESTERASE ,URINE NEGATIVE (NEGATIVE); NITRATE,URINE NEGATIVE (NEGATIVE); OCCULT BLOOD,URINE NEGATIVE (NEGATIVE); PROTEIN,URINE POS 1+ (NEGATIVE)
[2020-01-25 00:22] LABS: AMPHET/METH SCREEN,URINE NEGATIVE (NEGATIVE); BARBITURATE SCREEN, URINE NEGATIVE (NEGATIVE); BENZODIAZEPINES SCREEN,URINE NEGATIVE (NEGATIVE); CANNABINOID SCREEN,URINE NEGATIVE (NEGATIVE); COCAINE SCREEN,URINE NEGATIVE (NEGATIVE); METHADONE SCREEN, URINE NEGATIVE (NEGATIVE); OPIATE SCREEN,URINE NEGATIVE (NEGATIVE)
[2020-01-25 00:23] LABS: PHENCYCLIDINE SCREEN,URINE NEGATIVE (NEGATIVE)
[2020-01-25 00:26] LABS: BACTERIA,URINE None Seen /HPF (None Seen); RBC,URINE 0-2 /HPF (0-2); SQUAMOUS EPITHELIAL CELL,UR Rare /LPF (None Seen); WBC,URINE None Seen /HPF (0-5)
[2020-01-25] MEDS ORDERED: ONDANSETRON HCL 4 MG/2 ML VIAL IVP PRN ×2 (01:15→11:00)
[2020-01-25] MEDS ORDERED: 0.9% SODIUM CHLORIDE 10 ML SYRINGE IVP PRN (01:15)
[2020-01-25] MEDS ORDERED: ACETAMINOPHEN 325 MG TABLET PO PRN ×2 (01:15→11:00)
[2020-01-25 02:26] VITALS: BP 134/86
[2020-01-25 04:27] VITALS: BP 118/64
[2020-01-25 07:31] VITALS: BP 122/70
[2020-01-25] MEDS ORDERED: HYDROCODONE/ACETAMINOPHEN 5-325 MG TABLET PO PRN (11:00)
[2020-01-25] MEDS ORDERED: BISACODYL 10 MG RECTAL RECTAL SUPPOSITORY PR PRN (11:00)
[2020-01-25] MEDS ORDERED: MAGNESIUM HYDROXIDE SUSPENSION 30 ML UDCUP PO PRN (11:00)
[2020-01-25] MEDS ORDERED: ZOLPIDEM TARTRATE 5 MG TABLET PO PRN (11:00)
[2020-01-25] MEDS ORDERED: MORPHINE SULFATE 2 MG/ML SYRINGE IVP PRN (11:00)
[2020-01-25 11:46] VITALS: BP 136/74
[2020-01-25] MEDS: HEPARIN SODIUM,PORCINE 5,000 UNITS/ML VIAL SQ SCH (15:54)
[2020-01-25 15:55] VITALS: BP 126/70
[2020-01-25] MEDS: LORazepam 1 MG TABLET PO PRN (17:45)
[2020-01-25] MEDS: MetFORMIN HCL 500 MG TABLET PO SCH (17:46)
[2020-01-25 19:25] VITALS: BP 136/75
[2020-01-25] MEDS: DOCUSATE SODIUM 100 MG CAPSULE PO SCH (20:40)
[2020-01-25] MEDS: DIVALPROEX SODIUM 500 MG ER TABLET PO SCH (20:41)
[2020-01-25] MEDS ORDERED: CloZAPine 100 MG TABLET PO SCH (21:00)
[2020-01-26] MEDS: PHENYTOIN SODIUM 100 MG ER CAPSULE PO SCH ×2 (00:03→08:23)
[2020-01-26] MEDS: HEPARIN SODIUM,PORCINE 5,000 UNITS/ML VIAL SQ SCH ×2 (00:04→08:00)
[2020-01-26 00:39] VITALS: BP 116/58
[2020-01-26 04:16] VITALS: BP 110/62
[2020-01-26 06:33] LABS: BASOPHILS % (AUTO) 0.7 % (0.0-2.0); EOSINOPHILS % (AUTO) 0.7 % (1.0-6.0); HEMATOCRIT 41.1 % (41-53); HEMOGLOBIN 13.6 g/dL (13.5-17.5); LYMPHOCYTES # (AUTO) 2.8 K/uL (1.0-4.8); LYMPHOCYTES % (AUTO) 52.3 % (22.0-44.0); MEAN CORPUSCULAR HEMOGLOBIN 31.3 pg (26.0-34.0); MEAN CORPUSCULAR HGB CONC 33.1 G/dL (31.0-37.0); MEAN CORPUSCULAR VOLUME 95 fL (80-100); MONOCYTES # (AUTO) 0.6 K/uL (0.1-1.0); MONOCYTES % (AUTO) 11.8 % (2.0-9.0); NEUTROPHILS # (AUTO) 1.9 K/uL (1.8-7.7); NEUTROPHILS % (AUTO) 34.5 % (40.0-70.0); PLATELET COUNT (AUTO) 210 K/uL (150-450); RED BLOOD CELL COUNT(AUTO) 4.35 MIL/uL (4.50-5.90); RED CELL DISTRIBUTION WIDTH 14.8 % (11.5-14.5)
[2020-01-26 06:50] LABS: ALANINE AMINOTRANSFERASE 27 U/L (12-78); ALBUMIN 2.8 g/dL (3.4-5.0); ALKALINE PHOSPHATASE 57 U/L (46-116); ANION GAP 8 mmol/L (8-16); ASPARTATE AMINOTRANSFERASE 14 U/L (15-37); BILIRUBIN,TOTAL 0.2 mg/dL (0.1-1.0); CALCIUM, TOTAL 8.2 mg/dL (8.8-10.5); CARBON DIOXIDE 28 mmol/L (22-29); CHLORIDE 105 mmol/L (98-107); CREATININE 0.57 mg/dL (0.60-1.30); GLOMERULAR FILTR. RATE CALC > 60 mL/min (>60); GLUCOSE,RANDOM 135 mg/dL (70-110); POTASSIUM 4.3 mmol/L (3.5-5.1); SODIUM SERUM 141 mmol/L (136-145); TOTAL PROTEIN, SERUM 6.5 g/dL (6.4-8.2); UREA NITROGEN, BLOOD 17 mg/dL (7-18)
[2020-01-26 07:25] VITALS: BP 123/79
[2020-01-26] MEDS: DIVALPROEX SODIUM 500 MG ER TABLET PO SCH (08:22)
[2020-01-26] MEDS: MetFORMIN HCL 500 MG TABLET PO SCH (08:22)
[2020-01-26] MEDS: DOCUSATE SODIUM 100 MG CAPSULE PO SCH (08:23)
[2020-01-26] MEDS: LORazepam 1 MG TABLET PO PRN (08:33)
[2020-01-26] MEDS ORDERED: ASPIRIN 81 MG EC TABLET PO SCH (09:00)
[2020-01-26] MEDS ORDERED: PANTOPRAZOLE SODIUM 40 MG DR TABLET PO SCH (09:00)
[2020-01-26] MEDS ORDERED: PHENYTOIN SODIUM 100 MG ER CAPSULE PO SCH (09:00)
[2020-01-26] MEDS ORDERED: CloZAPine 100 MG TABLET PO SCH (10:45)
[2020-01-26] MEDS ORDERED: PHENY100 PO (11:10)
[2020-01-26 11:12] VITALS: BP 136/69
== END 2020-01-26 14:50 | disposition home or self-care (01) | DRG 101 ==
LOC: EMS 22:29 → 5N 01-25 01:28
PROVIDERS: ADMIT Internal Medicine; ATTEND Internal Medicine
DX: G40.909 Epilepsy, unspecified, not intractable, without status epilepticus (principal); G20 Parkinson's disease; R47.1 Dysarthria and anarthria; F20.9 Schizophrenia, unspecified; E11.9 Type 2 diabetes mellitus without complications; I10 Essential (primary) hypertension; F17.210 Nicotine dependence, cigarettes, uncomplicated; Z88.8 Allergy status to other drugs, medicaments and biological substances; Z98.890 Other specified postprocedural states
CPT/HCPCS: 70450; 87081; 93005; 96365; G0480; J0712; J1644; J7060

== ENCOUNTER 2021-11-28 21:32 | Emergency (ER) | payer MEDICARE, OTHER ==
[~2021-11-28] VITALS: Ht 177.8 cm; Wt 90.9 kg
[~2021-11-28 21:32] MED LIST changes: -ASPI-1111 PO; +ASPI-1444 PO; -CLOZ100 PO; +CLOZ100T32 PO; +DIVA-80 PO; -DIVA500T52 PO; -MAGOX PO; +METF-1211 PO; -METF-960 PO; -OMEG-135 PO; -PHEN100C23 PO; +PHENY100 PO; -SIMV-261 PO
[2021-11-28 23:36] LABS: EOSINOPHILS % (AUTO) 0.3 % (1.0-6.0); HEMATOCRIT 38.9 % (41-53); HEMOGLOBIN 13.4 g/dL (13.5-17.5); LYMPHOCYTES % (AUTO) 36.7 % (22.0-44.0); MEAN CORPUSCULAR HEMOGLOBIN 30.9 pg (26.0-34.0); MEAN CORPUSCULAR HGB CONC 34.4 G/dL (31.0-37.0); MEAN CORPUSCULAR VOLUME 90 fL (80-100); MONOCYTES # (AUTO) 0.6 K/uL (0.1-1.0); MONOCYTES % (AUTO) 11.2 % (2.0-9.0); NEUTROPHILS # (AUTO) 2.8 K/uL (1.8-7.7); NEUTROPHILS % (AUTO) 50.8 % (40.0-70.0); PLATELET COUNT (AUTO) 303 K/uL (150-450); RED BLOOD CELL COUNT(AUTO) 4.32 MIL/uL (4.50-5.90); RED CELL DISTRIBUTION WIDTH 13.9 % (11.5-14.5)
[2021-11-28 23:44] LABS: ANION GAP 5 mmol/L (8-16); CALCIUM, TOTAL 9.2 mg/dL (8.8-10.5); CARBON DIOXIDE 30 mmol/L (22-29); CHLORIDE 105 mmol/L (98-107); CREATININE 0.87 mg/dL (0.60-1.30); GLOMERULAR FILTR. RATE CALC > 60 mL/min (>60); GLUCOSE,RANDOM 183 mg/dL (70-110); POTASSIUM 4.2 mmol/L (3.5-5.1); SODIUM SERUM 140 mmol/L (136-145); UREA NITROGEN, BLOOD 16 mg/dL (7-18)
[2021-11-28 23:50] LABS: CREATINE KINASE, TOTAL ONLY 56 U/L (39-308)
[2021-11-29] VITALS: BP 167/95
[2021-11-29 00:23] LABS: COVID AG,FIA SOURCE NASOPHARYNGEAL
== END 2021-11-29 02:07 | disposition home or self-care (01) ==
LOC: EMS 21:33
DX: F20.9 Schizophrenia, unspecified (principal); E11.9 Type 2 diabetes mellitus without complications; I10 Essential (primary) hypertension; Z20.822 Contact with and (suspected) exposure to COVID-19; Z79.84 Long term (current) use of oral hypoglycemic drugs
CPT/HCPCS: 36415; 71045; 80048; 82550; 83880; 84484; 85025; 87426; 93005; 99285; U0003

== ENCOUNTER → 2022-01-04 | Outpatient (CLI) | payer MEDICARE, OTHER ==
[2022-01-04 16:28] LABS: BASOPHILS % (AUTO) 0.9 % (0.0-2.0); EOSINOPHILS % (AUTO) 0.1 % (1.0-6.0); HEMATOCRIT 41.2 % (41-53); LYMPHOCYTES % (AUTO) 33.6 % (22.0-44.0); MEAN CORPUSCULAR HGB CONC 34.1 G/dL (31.0-37.0); MEAN CORPUSCULAR VOLUME 91 fL (80-100); MONOCYTES # (AUTO) 0.6 K/uL (0.1-1.0); MONOCYTES % (AUTO) 9.6 % (2.0-9.0); NEUTROPHILS # (AUTO) 3.3 K/uL (1.8-7.7); NEUTROPHILS % (AUTO) 55.8 % (40.0-70.0); PLATELET COUNT (AUTO) 374 K/uL (150-450); RED BLOOD CELL COUNT(AUTO) 4.53 MIL/uL (4.50-5.90)
== END | disposition home or self-care (01) ==
LOC: LABMN 11:03
PROVIDERS: ATTEND Psychiatry & Neurology Psychiatry
DX: F20.9 Schizophrenia, unspecified (principal)
CPT/HCPCS: 80164; 85025

== ENCOUNTER 2023-03-04 17:52 | Inpatient (IN) | payer MEDICARE, MEDICAID ==
[~2023-03-04] VITALS: Ht 177.8 cm; Wt 80.5 kg
[~2023-03-04 17:52] MED LIST changes: -CLOZ100T32 PO; +CLOZ100T68 PO; -DIVA-80 PO; +DIVA500T53 PO; +PHEN100C10 PO; -PHENY100 PO
[2023-03-04 20:18] LABS: BASOPHILS % (AUTO) 1.1 % (0.0-2.0); EOSINOPHILS % (AUTO) 1.1 % (1.0-6.0); HEMATOCRIT 34.7 % (41-53); HEMOGLOBIN 11.7 g/dL (13.5-17.5); LYMPHOCYTES # (AUTO) 2.2 K/uL (1.0-4.8); LYMPHOCYTES % (AUTO) 34.7 % (22.0-44.0); MEAN CORPUSCULAR HEMOGLOBIN 31.7 pg (26.0-34.0); MEAN CORPUSCULAR HGB CONC 33.8 G/dL (31.0-37.0); MEAN CORPUSCULAR VOLUME 94 fL (80-100); MONOCYTES # (AUTO) 0.7 K/uL (0.1-1.0); MONOCYTES % (AUTO) 10.6 % (2.0-9.0); NEUTROPHILS # (AUTO) 3.3 K/uL (1.8-7.7); NEUTROPHILS % (AUTO) 52.5 % (40.0-70.0); PLATELET COUNT (AUTO) 231 K/uL (150-450); RED CELL DISTRIBUTION WIDTH 14.5 % (11.5-14.5)
[2023-03-04 20:28] LABS: ANION GAP 5 mmol/L (8-16); CARBON DIOXIDE 32 mmol/L (22-29); CHLORIDE 101 mmol/L (98-107); CREATININE 0.92 mg/dL (0.60-1.30); GLOMERULAR FILTR. RATE CALC > 60 mL/min (>60); GLUCOSE,RANDOM 148 mg/dL (70-110); POTASSIUM 4.5 mmol/L (3.5-5.1); SODIUM SERUM 138 mmol/L (136-145); UREA NITROGEN, BLOOD 16 mg/dL (7-18)
[2023-03-04 20:34] LABS: ALANINE AMINOTRANSFERASE 17 U/L (12-78); ALBUMIN 2.9 g/dL (3.4-5.0); ALKALINE PHOSPHATASE 84 U/L (46-116); BILIRUBIN,TOTAL 0.2 mg/dL (0.1-1.0); TOTAL PROTEIN, SERUM 6.8 g/dL (6.4-8.2)
[2023-03-04 20:49] LABS: ASPARTATE AMINOTRANSFERASE 14 U/L (15-37)
[2023-03-04] MEDS ORDERED: ZOLPIDEM TARTRATE 10 MG TABLET PO PRN (21:15)
[2023-03-04 21:57] LABS: COVID AG,FIA SOURCE NASOPHARYNGEAL
[2023-03-05 02:19] VITALS: BP 111/72
[2023-03-05] MEDS ORDERED: OMEPRAZOLE 20 MG CAPSULE PO PRN (06:00)
[2023-03-05] MEDS ORDERED: DOCUSATE SODIUM 100 MG CAPSULE PO PRN (06:00)
[2023-03-05] MEDS ORDERED: LOPERAMIDE HCL 2 MG CAPSULE PO PRN (06:00)
[2023-03-05] MEDS ORDERED: BENZOCAINE/MENTHOL LOZENGE PO PRN (06:00)
[2023-03-05] MEDS ORDERED: ALBUTEROL SULFATE HFA 90 MCG/PUFF 8 GM INHALER IH PRN (06:00)
[2023-03-05] MEDS ORDERED: IBUPROFEN 600 MG TABLET PO PRN (06:00)
[2023-03-05] MEDS ORDERED: PETROLATUM,WHITE 28 GM JELLY TP PRN (06:00)
[2023-03-05] MEDS ORDERED: CloNIDine HCL 0.1 MG TABLET PO PRN (06:00)
[2023-03-05] MEDS ORDERED: BACITRACIN 28 GM OINTMENT TP PRN (06:00)
[2023-03-05] MEDS ORDERED: MAGNESIUM HYDROXIDE SUSPENSION 30 ML UDCUP PO PRN (06:00)
[2023-03-05] MEDS ORDERED: ACETAMINOPHEN 325 MG TABLET PO PRN (06:00)
[2023-03-05] MEDS ORDERED: ONDANSETRON HCL 4 MG TABLET PO PRN (06:00)
[2023-03-05] MEDS ORDERED: MAG HYDROX/AL HYDROX/SIMETH ES 30 ML SUSPENSION UDCUP PO PRN (06:00)
[2023-03-05] MEDS: MetFORMIN HCL 500 MG TABLET PO SCH ×2 (06:47→16:50)
[2023-03-05 06:51] LABS: GLUCOMETER DEV NAME(LOC) BV2X.2; GLUCOSE,POINT OF CARE 175 MG/DL (70-110)
[2023-03-05 08:10] VITALS: BP 124/80
[2023-03-05] MEDS: PHENYTOIN SODIUM 100 MG ER CAPSULE PO SCH ×2 (08:26→16:50)
[2023-03-05] MEDS: ASPIRIN 81 MG DR TABLET PO SCH (08:28)
[2023-03-05] MEDS: LORazepam 2 MG TABLET PO PRN (11:03)
[2023-03-05] MEDS ORDERED: DiphenhydrAMINE HCL 50 MG/ML VIAL IM ONE (13:30)
[2023-03-05] MEDS ORDERED: HALOPERIDOL LACTATE 5 MG/ML VIAL IM ONE (13:30)
[2023-03-05] MEDS ORDERED: LORazepam 2 MG/ML VIAL IM ONE (13:30)
[2023-03-05] MEDS ORDERED: LORazepam 2 MG/ML VIAL ONE (13:34)
[2023-03-05] MEDS ORDERED: DiphenhydrAMINE HCL 50 MG/ML VIAL ONE (13:35)
[2023-03-05] MEDS ORDERED: HALOPERIDOL LACTATE 5 MG/ML VIAL ONE (13:35)
[2023-03-05] MEDS: DIVALPROEX SODIUM 500 MG DR TABLET PO SCH (16:50)
[2023-03-05 20:28] VITALS: BP 115/86
[2023-03-05] MEDS: CloZAPine 100 MG TABLET PO SCH (20:34)
[2023-03-06] MEDS: MetFORMIN HCL 500 MG TABLET PO SCH ×2 (06:38→16:31)
[2023-03-06 08:50] VITALS: BP 135/75
[2023-03-06] MEDS: ASPIRIN 81 MG DR TABLET PO SCH (08:53)
[2023-03-06] MEDS: PHENYTOIN SODIUM 100 MG ER CAPSULE PO SCH ×2 (08:54→16:31)
[2023-03-06] MEDS: DIVALPROEX SODIUM 500 MG DR TABLET PO SCH ×2 (08:54→16:32)
[2023-03-06] MEDS: LORazepam 2 MG TABLET PO PRN (14:03)
[2023-03-06 16:56] LABS: GLUCOMETER DEV NAME(LOC) BV2X.2; GLUCOSE,POINT OF CARE 155 MG/DL (70-110)
[2023-03-06 20:28] VITALS: BP 168/117
[2023-03-06] MEDS: CloZAPine 100 MG TABLET PO SCH (21:03)
[2023-03-07] MEDS: MetFORMIN HCL 500 MG TABLET PO SCH ×2 (06:45→18:14)
[2023-03-07 08:20] VITALS: BP 146/99
[2023-03-07] MEDS: DIVALPROEX SODIUM 500 MG DR TABLET PO SCH ×2 (08:29→18:14)
[2023-03-07] MEDS: PHENYTOIN SODIUM 100 MG ER CAPSULE PO SCH ×2 (08:29→18:13)
[2023-03-07] MEDS: ASPIRIN 81 MG DR TABLET PO SCH (08:29)
[2023-03-07 20:00] VITALS: BP 134/69
[2023-03-07] MEDS: CloZAPine 100 MG TABLET PO SCH (21:27)
[2023-03-07] MEDS: LISINOPRIL 20 MG TABLET PO SCH (21:32)
[2023-03-07] MEDS: ATORVASTATIN CALCIUM 10 MG TABLET PO SCH (21:32)
[2023-03-07] MEDS: METOPROLOL SUCCINATE 25 MG ER TABLET PO SCH (21:32)
[2023-03-07] MEDS: FAMOTIDINE 20 MG TABLET PO SCH (21:38)
[2023-03-07] MEDS: HALOPERIDOL 5 MG TABLET PO PRN (21:39)
[2023-03-08] MEDS: MetFORMIN HCL 500 MG TABLET PO SCH ×2 (07:08→16:31)
[2023-03-08 08:02] VITALS: BP 131/86
[2023-03-08] MEDS: ALLOPURINOL 100 MG TABLET PO SCH (08:50)
[2023-03-08] MEDS: PHENYTOIN SODIUM 100 MG ER CAPSULE PO SCH ×2 (08:50→16:31)
[2023-03-08] MEDS: DIVALPROEX SODIUM 500 MG DR TABLET PO SCH ×2 (08:50→16:32)
[2023-03-08] MEDS: METOPROLOL SUCCINATE 25 MG ER TABLET PO SCH (08:50)
[2023-03-08] MEDS: ASPIRIN 81 MG DR TABLET PO SCH (08:50)
[2023-03-08] MEDS: LISINOPRIL 20 MG TABLET PO SCH (08:50)
[2023-03-08] MEDS: ATORVASTATIN CALCIUM 10 MG TABLET PO SCH (20:27)
[2023-03-08] MEDS: FAMOTIDINE 20 MG TABLET PO SCH (20:27)
[2023-03-08] MEDS: CloZAPine 100 MG TABLET PO SCH (20:28)
[2023-03-08 20:51] VITALS: BP 126/68
[2023-03-08] MEDS: HALOPERIDOL 5 MG TABLET PO PRN (21:11)
[2023-03-08] MEDS: LORazepam 2 MG TABLET PO PRN (21:11)
[2023-03-09] MEDS: MetFORMIN HCL 500 MG TABLET PO SCH ×2 (07:00→17:31)
[2023-03-09] MEDS: METOPROLOL SUCCINATE 25 MG ER TABLET PO SCH (10:07)
[2023-03-09] MEDS: ALLOPURINOL 100 MG TABLET PO SCH (10:08)
[2023-03-09] MEDS: DIVALPROEX SODIUM 500 MG DR TABLET PO SCH ×2 (10:08→17:32)
[2023-03-09] MEDS: LISINOPRIL 20 MG TABLET PO SCH (10:08)
[2023-03-09] MEDS: PHENYTOIN SODIUM 100 MG ER CAPSULE PO SCH ×2 (10:08→17:32)
[2023-03-09] MEDS: ASPIRIN 81 MG DR TABLET PO SCH (10:08)
[2023-03-09 13:21] LABS: GLUCOMETER DEV NAME(LOC) POC.BV
[2023-03-09 14:25] VITALS: BP 130/80
[2023-03-09] MEDS: LORazepam 2 MG TABLET PO PRN (17:30)
[2023-03-09] MEDS: CloZAPine 100 MG TABLET PO SCH (20:45)
[2023-03-09] MEDS: ATORVASTATIN CALCIUM 10 MG TABLET PO SCH (20:46)
[2023-03-09] MEDS: FAMOTIDINE 20 MG TABLET PO SCH (20:46)
[2023-03-09 21:00] VITALS: BP 117/68
[2023-03-10] MEDS: MetFORMIN HCL 500 MG TABLET PO SCH (07:01)
[2023-03-10 08:22] VITALS: BP 126/79
[2023-03-10] MEDS: PHENYTOIN SODIUM 100 MG ER CAPSULE PO SCH (09:04)
[2023-03-10] MEDS: ASPIRIN 81 MG DR TABLET PO SCH (09:04)
[2023-03-10] MEDS: LISINOPRIL 20 MG TABLET PO SCH (09:04)
[2023-03-10] MEDS: DIVALPROEX SODIUM 500 MG DR TABLET PO SCH (09:04)
[2023-03-10] MEDS: ALLOPURINOL 100 MG TABLET PO SCH (09:04)
[2023-03-10] MEDS: METOPROLOL SUCCINATE 25 MG ER TABLET PO SCH (09:04)
[2023-03-10 10:40] LABS: CHOL/HDL RATIO 6.7 (4.2-7.3); CHOLESTEROL 248 mg/dL (131-200); HDL CHOLESTEROL 37 mg/dL (40-60); TRIGLYCERIDES 492 mg/dL (15-150); VALPROIC ACID 49 mcg/mL (50-100)
[2023-03-10] MEDS ORDERED: CLOZ100T68 PO (11:42)
[2023-03-10] MEDS ORDERED: ALLO-97 PO (11:43)
[2023-03-10] MEDS ORDERED: METO25XL PO (11:44)
[2023-03-10] MEDS ORDERED: LISI-894 PO (11:45)
[2023-03-10] MEDS ORDERED: ATOR10TA PO (11:46)
== END 2023-03-10 13:40 | disposition home or self-care (01) | DRG 885 ==
LOC: EMS 17:59 → B2X 22:00
PROVIDERS: ADMIT Psychiatry & Neurology Psychiatry; ATTEND Psychiatry & Neurology Psychiatry
DX: F25.9 Schizoaffective disorder, unspecified (principal); R45.851 Suicidal ideations; Z20.822 Contact with and (suspected) exposure to COVID-19; J44.9 Chronic obstructive pulmonary disease, unspecified; E11.9 Type 2 diabetes mellitus without complications; G40.909 Epilepsy, unspecified, not intractable, without status epilepticus; E78.5 Hyperlipidemia, unspecified; F41.9 Anxiety disorder, unspecified; G47.00 Insomnia, unspecified; K59.00 Constipation, unspecified; G20 Parkinson's disease
CPT/HCPCS: 71045; 80053; 80061; 80164; 82962; 85025; 93005; 99285; G0480; J1200; J1630; J2060; 36415-L1; 36415-TC

== ENCOUNTER 2023-10-01 11:04 | Emergency (ER) | payer MEDICARE, OTHER ==
[~2023-10-01] VITALS: Ht 177.8 cm; Wt 86.4 kg
[~2023-10-01 11:04] MED LIST changes: +ALLO-97 PO; -ASPI-1444 PO; +ATOR10TA PO; +LISI-894 PO; +METO25XL PO
[2023-10-01] MEDS ORDERED: LORazepam 1 MG TABLET PO ONE (12:00)
[2023-10-01 12:38] LABS: BASOPHILS % (AUTO) 0.7 % (0.0-2.0); EOSINOPHILS % (AUTO) 0.3 % (1.0-6.0); HEMATOCRIT 35.7 % (41-53); LYMPHOCYTES # (AUTO) 1.6 K/uL (1.0-4.8); LYMPHOCYTES % (AUTO) 25.3 % (22.0-44.0); MEAN CORPUSCULAR HEMOGLOBIN 32.2 pg (26.0-34.0); MEAN CORPUSCULAR HGB CONC 33.7 G/dL (31.0-37.0); MEAN CORPUSCULAR VOLUME 96 fL (80-100); MONOCYTES # (AUTO) 0.6 K/uL (0.1-1.0); MONOCYTES % (AUTO) 9.9 % (2.0-9.0); NEUTROPHILS # (AUTO) 4.1 K/uL (1.8-7.7); NEUTROPHILS % (AUTO) 63.8 % (40.0-70.0); PLATELET COUNT (AUTO) 294 K/uL (150-450); RED BLOOD CELL COUNT(AUTO) 3.74 MIL/uL (4.50-5.90); RED CELL DISTRIBUTION WIDTH 14.9 % (11.5-14.5); WHITE BLOOD COUNT (AUTO) 6.4 K/uL (4.5-11.0)
[2023-10-01 12:45] LABS: ANION GAP 8 mmol/L (8-16); CALCIUM, TOTAL 9.4 mg/dL (8.8-10.5); CARBON DIOXIDE 29 mmol/L (22-29); CHLORIDE 102 mmol/L (98-107); CREATININE 1.18 mg/dL (0.60-1.30); GLOMERULAR FILTR. RATE CALC > 60 mL/min (>60); GLUCOSE,RANDOM 279 mg/dL (70-110); POTASSIUM 4.5 mmol/L (3.5-5.1); SODIUM SERUM 139 mmol/L (136-145); UREA NITROGEN, BLOOD 23 mg/dL (7-18)
[2023-10-01 12:50] LABS: ALANINE AMINOTRANSFERASE 19 U/L (12-78); ALKALINE PHOSPHATASE 91 U/L (46-116); ASPARTATE AMINOTRANSFERASE 8 U/L (15-37); BILIRUBIN,TOTAL 0.2 mg/dL (0.1-1.0); TOTAL PROTEIN, SERUM 7.6 g/dL (6.4-8.2)
[2023-10-01 12:53] LABS: TROPONIN I-HIGH SENSITIVITY 5 ng/L (<76)
[2023-10-01 12:59] LABS: B-TYPE NATRIURETIC PEPTIDE 25 pg/mL (0-100)
[2023-10-01 13:23] VITALS: BP 130/75; PULSE 74; RESP 18; TEMP 97.6
== END 2023-10-01 13:53 | disposition home or self-care (01) ==
LOC: EMS 11:04
DX: F41.9 Anxiety disorder, unspecified (principal); E11.9 Type 2 diabetes mellitus without complications; F20.9 Schizophrenia, unspecified; G40.909 Epilepsy, unspecified, not intractable, without status epilepticus; J44.9 Chronic obstructive pulmonary disease, unspecified
CPT/HCPCS: 71045; 80053; 83880; 84484; 85025; 93005; 99285; 36415-L1; 36415-TC

== ENCOUNTER 2023-10-05 20:49 | Emergency (ER) | payer MEDICARE, OTHER ==
[~2023-10-05] VITALS: Ht 177.8 cm; Wt 86.4 kg
[2023-10-05 21:51] VITALS: TEMP 97.9
[2023-10-05] MEDS ORDERED: LORA-999 PO (21:56)
[2023-10-05] MEDS ORDERED: MAGN400T25 PO (21:56)
[2023-10-05] MEDS ORDERED: FLUT1BLS IH (21:56)
[2023-10-05 22:57] LABS: PH,URINE DRUG SCREEN 6.5 (5.0-8.0)
[2023-10-05 23:02] LABS: AMPHET/METH SCREEN,URINE NEGATIVE (NEGATIVE); BARBITURATE SCREEN, URINE NEGATIVE (NEGATIVE); BENZODIAZEPINES SCREEN,URINE NEGATIVE (NEGATIVE); CANNABINOID SCREEN,URINE NEGATIVE (NEGATIVE); COCAINE SCREEN,URINE NEGATIVE (NEGATIVE); METHADONE SCREEN, URINE NEGATIVE (NEGATIVE); OPIATE SCREEN,URINE NEGATIVE (NEGATIVE); PHENCYCLIDINE SCREEN,URINE NEGATIVE (NEGATIVE)
[2023-10-05 23:03] LABS: ALCOHOL, URINE DRUG SCREEN NEGATIVE (NEGATIVE)
[2023-10-06 00:10] VITALS: BP 123/80; PULSE 89; RESP 16
[2023-10-06] MEDS ORDERED: HALOPERIDOL 5 MG TABLET PO ONE (00:45)
[2023-10-06] MEDS ORDERED: LORazepam 1 MG TABLET PO ONE (00:45)
[2023-10-06] MEDS ORDERED: BENZTROPINE MESYLATE 1 MG/ML 2 ML VIAL IM ONE (01:00)
[2023-10-06] MEDS ORDERED: LORazepam 2 MG/ML VIAL IVP ONE (01:15)
== END 2023-10-06 02:04 | disposition home or self-care (01) ==
LOC: EMS 20:52
DX: F25.9 Schizoaffective disorder, unspecified (principal); F41.9 Anxiety disorder, unspecified; R06.00 Dyspnea, unspecified; J44.9 Chronic obstructive pulmonary disease, unspecified; E11.9 Type 2 diabetes mellitus without complications; Z98.890 Other specified postprocedural states; Z88.8 Allergy status to other drugs, medicaments and biological substances
CPT/HCPCS: 99285; 71045; 82962; 93005; 80307; 96374; 96372; J0515; J2060

== ENCOUNTER 2023-10-15 15:37 | Emergency (ER) | payer MEDICARE, OTHER ==
[~2023-10-15] VITALS: Ht 177.8 cm; Wt 81.8 kg
[~2023-10-15 15:37] MED LIST changes: +FLUT1BLS IH; +LORA-999 PO; +MAGN400T25 PO; -PHEN100C10 PO
[2023-10-15 17:19] VITALS: TEMP 98.8
[2023-10-15 18:00] VITALS: BP 130/74; PULSE 88; RESP 18
[2023-10-15] MEDS ORDERED: LORazepam 1 MG TABLET PO ONE (18:00)
[2023-10-15] MEDS ORDERED: ALBUTEROL SULFATE HFA 90 MCG/PUFF 8 GM INHALER IH ONE (18:00)
== END 2023-10-15 20:12 | disposition home or self-care (01) ==
LOC: EMS 16:40
DX: F41.9 Anxiety disorder, unspecified (principal); J44.9 Chronic obstructive pulmonary disease, unspecified; E11.9 Type 2 diabetes mellitus without complications; F20.9 Schizophrenia, unspecified; Z98.890 Other specified postprocedural states; Z88.8 Allergy status to other drugs, medicaments and biological substances
CPT/HCPCS: 99283; 94640; J3535

== ENCOUNTER 2023-11-01 21:34 | Emergency (ER) | payer MEDICARE, OTHER ==
[~2023-11-01] VITALS: Ht 167.6 cm; Wt 86.4 kg
[2023-11-01 21:44] VITALS: TEMP 97.3
[2023-11-01 23:55] LABS: BASOPHILS % (AUTO) 0.7 % (0.0-2.0); EOSINOPHILS % (AUTO) 0.4 % (1.0-6.0); HEMATOCRIT 39.3 % (41-53); LYMPHOCYTES % (AUTO) 33.1 % (22.0-44.0); MEAN CORPUSCULAR HEMOGLOBIN 32.1 pg (26.0-34.0); MEAN CORPUSCULAR HGB CONC 33.1 G/dL (31.0-37.0); MEAN CORPUSCULAR VOLUME 97 fL (80-100); MONOCYTES # (AUTO) 0.8 K/uL (0.1-1.0); MONOCYTES % (AUTO) 13.3 % (2.0-9.0); NEUTROPHILS # (AUTO) 3.1 K/uL (1.8-7.7); NEUTROPHILS % (AUTO) 52.5 % (40.0-70.0); PLATELET COUNT (AUTO) 254 K/uL (150-450); RED BLOOD CELL COUNT(AUTO) 4.06 MIL/uL (4.50-5.90); RED CELL DISTRIBUTION WIDTH 14.9 % (11.5-14.5)
[2023-11-02 00:05] LABS: ALBUMIN 2.4 g/dL (3.4-5.0); CREATININE 0.74 mg/dL (0.60-1.30); GLOMERULAR FILTR. RATE CALC > 60 mL/min (>60); TOTAL PROTEIN, SERUM 6.2 g/dL (6.4-8.2); UREA NITROGEN, BLOOD 16 mg/dL (7-18)
[2023-11-02 00:07] LABS: ALCOHOL, BLOOD (SERUM) < 3 mg/dL (0-10)
[2023-11-02 00:21] LABS: ANION GAP 18 mmol/L (8-16); CHLORIDE 104 mmol/L (98-107); POTASSIUM 4.4 mmol/L (3.5-5.1); SODIUM SERUM 140 mmol/L (136-145)
[2023-11-02 00:35] LABS: ALANINE AMINOTRANSFERASE 11 U/L (12-78); ALKALINE PHOSPHATASE 64 U/L (46-116); BILIRUBIN,TOTAL 0.1 mg/dL (0.1-1.0); CALCIUM, TOTAL 6.7 mg/dL (8.8-10.5); CARBON DIOXIDE 18 mmol/L (22-29); GLUCOSE,RANDOM 150 mg/dL (70-110)
[2023-11-02 00:37] LABS: ASPARTATE AMINOTRANSFERASE < 5 U/L (15-37)
[2023-11-02] MEDS ORDERED: BENZTROPINE MESYLATE 1 MG TABLET PO ONE (01:15)
[2023-11-02 01:30] VITALS: BP 133/81; PULSE 90; RESP 18
== END 2023-11-02 03:10 | disposition home or self-care (01) ==
LOC: EMS 21:36
DX: F41.9 Anxiety disorder, unspecified (principal); K11.7 Disturbances of salivary secretion; J44.9 Chronic obstructive pulmonary disease, unspecified; E11.9 Type 2 diabetes mellitus without complications; F20.9 Schizophrenia, unspecified; Z98.890 Other specified postprocedural states; Z88.8 Allergy status to other drugs, medicaments and biological substances
CPT/HCPCS: 99283; 80053; 85025; G0480

== ENCOUNTER 2024-11-08 12:57 | Emergency (ER) | payer MEDICARE, OTHER ==
[~2024-11-08] VITALS: Ht 177.8 cm; Wt 81.8 kg
[~2024-11-08 12:57] MED LIST changes: +CLOZ100T61 PO; -CLOZ100T68 PO; +DIVA-153 PO; -DIVA500T53 PO; -LORA-999 PO; -MAGN400T25 PO
[2024-11-08 13:44] VITALS: TEMP 98.8
[2024-11-08 14:57] LABS: BASOPHILS % (AUTO) 0.4 % (0.0-2.0); EOSINOPHILS % (AUTO) 0.1 % (1.0-6.0); HEMOGLOBIN 14.1 g/dL (13.5-17.5); LYMPHOCYTES # (AUTO) 1.2 K/uL (1.0-4.8); LYMPHOCYTES % (AUTO) 11.9 % (22.0-44.0); MEAN CORPUSCULAR HEMOGLOBIN 30.1 pg (26.0-34.0); MEAN CORPUSCULAR HGB CONC 32.8 G/dL (31.0-37.0); MEAN CORPUSCULAR VOLUME 92 fL (80-100); MONOCYTES # (AUTO) 1.8 K/uL (0.1-1.0); NEUTROPHILS % (AUTO) 69.6 % (40.0-70.0); PLATELET COUNT (AUTO) 447 K/uL (150-450); RED BLOOD CELL COUNT(AUTO) 4.68 MIL/uL (4.50-5.90); RED CELL DISTRIBUTION WIDTH 15.2 % (11.5-14.5)
[2024-11-08 15:00] LABS: ANION GAP 6 mmol/L (8-16); CALCIUM, TOTAL 9.3 mg/dL (8.8-10.5); CARBON DIOXIDE 26 mmol/L (22-29); CHLORIDE 97 mmol/L (98-107); CREATININE 1.11 mg/dL (0.60-1.30); GLOMERULAR FILTR. RATE CALC > 60 mL/min (>60); GLUCOSE,RANDOM 161 mg/dL (70-110); POTASSIUM 4.6 mmol/L (3.5-5.1); SODIUM SERUM 129 mmol/L (136-145); UREA NITROGEN, BLOOD 21 mg/dL (7-18)
[2024-11-08 15:50] VITALS: BP 156/88; PULSE 91; RESP 16; O2SAT 95
[2024-11-08 15:55] LABS: URIC ACID 10.8 mg/dL (2.6-7.2)
[2024-11-08] MEDS ORDERED: PRED-554 PO (16:03)
[2024-11-08] MEDS: KETOROLAC TROMETHAMINE 30 MG/ML VIAL IM ONE (16:09)
== END 2024-11-08 16:24 | disposition home or self-care (01) ==
LOC: EMS 12:57
DX: M10.9 Gout, unspecified (principal); J44.9 Chronic obstructive pulmonary disease, unspecified; E11.9 Type 2 diabetes mellitus without complications; F20.9 Schizophrenia, unspecified; G20.A1 Parkinson's disease without dyskinesia, without mention of fluctuations; Z79.51 Long term (current) use of inhaled steroids; Z79.52 Long term (current) use of systemic steroids; Z98.890 Other specified postprocedural states
CPT/HCPCS: 99284; 80048; 84550; 85025; 36415; 73110; 96372; J1885

== ENCOUNTER 2025-02-16 20:04 | Emergency (ER) | payer MEDICARE, OTHER ==
[~2025-02-16] VITALS: Ht 177.8 cm; Wt 95.0 kg
[~2025-02-16 20:04] MED LIST changes: +PRED-554 PO
[2025-02-16 20:27] VITALS: BP 157/81; PULSE 88; RESP 16; TEMP 98.1; O2SAT 97
[2025-02-16] MEDS: LORazepam 1 MG TABLET PO ONE (23:20)
[2025-02-16] MEDS: LORazepam 2 MG/ML VIAL IM ONE (23:56)
== END 2025-02-17 04:38 | disposition home or self-care (01) ==
LOC: EMS 20:04
DX: F41.9 Anxiety disorder, unspecified (principal); F12.10 Cannabis abuse, uncomplicated; J44.9 Chronic obstructive pulmonary disease, unspecified; E11.9 Type 2 diabetes mellitus without complications; F20.9 Schizophrenia, unspecified; G20.A1 Parkinson's disease without dyskinesia, without mention of fluctuations; Z79.51 Long term (current) use of inhaled steroids; Z79.52 Long term (current) use of systemic steroids; Z79.899 Other long term (current) drug therapy
CPT/HCPCS: 99283; 96372; J2060

== ENCOUNTER 2025-04-28 19:09 | Emergency (ER) | payer MEDICARE, OTHER ==
[~2025-04-28 19:09] MED LIST changes: +BENZ-247 PO; -PRED-554 PO
== END 2025-04-28 21:37 | disposition left against medical advice (07) ==
LOC: EMS 19:11
DX: Z76.0 Encounter for issue of repeat prescription (principal); Z53.21 Procedure and treatment not carried out due to patient leaving prior to being seen by health care provider